=== PATIENT | male | born 1985 | race Caucasian/White ===

== ENCOUNTER 2020-03-09 18:21 | Emergency (ER) | payer MEDICARE, MEDICAID, SELFPAY ==
[2020-03-09 18:23] VITALS: BP 119/84; PULSE 123; RESP 22; TEMP 37.2; O2SAT 98; BMI 27.2
--- NOTE | 2020-03-09 18:26 | [facility].EDGENADL ---
ED Disposition Clinical Impression: Dehydration Disposition: Home, Self-Care Condition on Discharge: Good Instructions: DI for Dehydration -- Adult Referrals: Adan Segovia MD [Primary Care Provider] - 3 days - Critical Care Critical Care Time: No Attestation: On , the high probability of a clinically significant, sudden or life threatening deterioration of the following system(s) required my full and direct attention, intervention and personal management. The time I documented below is in addition to time spent performing reported procedures but includes the following listed in this critical care notation. Medical Decision Making - [place] Inquiry Pt receiving controlled substance: No Vital Signs: 03/09/20 18:23 Temperature 99 F Temperature Source Oral Pulse Rate [Left Radial] 123 H Respiratory Rate 22 Blood Pressure [Right Arm] 119/84 Blood Pressure Mean [Right Arm] 95 Blood Pressure Position [Right Arm] Sitting 02 Sat by Pulse Oximetry 98 - Lab Data Lab results reviewed: Yes: I reviewed the patient's lab results. Lab Results 03/09/20 18:39: WBC 13.4 H, RBC 5.20, Hgb 16.1, Hct 45.6, MCV 87.7, MCH 31.1, MCHC 35.4, RDW 14.5, Plt Count 271, MPV 7.4, Neut % (Auto) 72.3, Lymph % (Auto) 21.6, Canadian % (Auto) 5.1, Eos % (Auto) 0.7, Baso % (Auto) 0.3, Neut # (Auto) 9.7 H, Lymph # (Auto) 2.9, Canadian # (Auto) 0.7, Eos # (Auto) 0.1, Baso # (Auto) 0.0 03/09/20 18:39: Sodium 142, Potassium 3.3 L, Chloride 109 H, Carbon Dioxide 21 L, Anion Gap 15.3 H, BUN 9, Creatinine 1.00, Estimated Creat Clear 127, Estimated GFR 86, Est GFR ( Amer) 103, Glucose 98, Calcium 9.1, Total Bilirubin 0.6, AST 21, ALT 16, Alkaline Phosphatase 63, Total Protein 7.0, Albumin 4.3, Globulin 2.7, Albumin/Globulin Ratio 1.6, Lipase 30 03/09/20 18:39: Plasma/Serum Alcohol < 10 Result diagrams: 03/09/20 18:39 03/09/20 18:39 Orders (Tests/Meds): ED MEDICATIONS Generic Name Dose Route Start Last Admin Trade Name Rose PRN Reason Stop Dose Admin Sodium Chloride 1,000 mls @ 999 mls/hr 03/09/20 18:30 03/09/20 18:32 Sod Chlor 0.9% 1000ml Bag IV 03/09/20 19:30 999 mls/hr .[id number] SHERRI Administration ORDERS Category Date Time Status Drug Screen,Urine Stat Lab 03/09/20 18:25 Ordered Urinalysis and Microscopic Stat Lab 03/09/20 18:25 Ordered Medical Decision Narrative: Patient alert and oriented x4. He has some dehydration, feeling much better after a liter of fluids. He states that he wants to try to leave to go back to [facility]. [facility] is already stated that they will not take him back, but he is certainly welcome to try to go back there. He states that if that does not work his plan is to obtain transport to [place]. No psychosis, confusion, delirium. he is of sound decision-making capacity, discharged from the ER. General Adult HPI - General Chief complaint: Weakness Stated complaint: weakness Time Seen by Provider: 03/09/20 18:21 Mode of Arrival: EMS Source of Information: Patient, EMS Limitations: No Limitations - History of Present Illness HPI narrative: This is a 34-year-old male with a past medical history of unspecified mood disorder who is a resident of [facility] that apparently left the facility today and has been wandering by the roadside for the majority of the day. Patient states he has been gone about 4 hours. He was found by bystanders to be drinking from various bottles on the roadside, so bystanders called police. Police called EMS for evaluation and patient presents here. His only complaint is pain in his legs and feet from walking all day. He is alert and oriented x4. Further discussion with [facility] later reveals that patient arrived 2 weeks ago, signed himself out after 24 hours (patient is competent to make his own medical decisions and has been homeless for years), then was readmitted the next day, and signed himself out again today. - Related Data Allergies Allergy/AdvRea
[2020-03-09 18:48] LABS: Basophils % 0.3 % (0.1-2.0); Eosinophils # 0.1 K/mm3 (0.0-0.4); Eosinophils % 0.7 % (0.1-12.0); Hematocrit 45.6 % (42.0-52.0); Hemoglobin 16.1 g/dL (14.1-18.0); Lymphocytes # 2.9 K/mm3 (0.7-4.5); Lymphocytes % 21.6 % (10-50); Mean Corpuscular HGB Conc 35.4 g/dL (31.8-35.4); Mean Corpuscular Hemoglobin 31.1 pg (27.0-31.2); Mean Corpuscular Volume 87.7 fl (80-94); Mean Platelet Volume 7.4 fl (7.4-10.4); Monocytes # 0.7 K/mm3 (0.1-1.0); Monocytes % 5.1 % (1.7-9.3); Neutrophils # 9.7 K/mm3 (1.8-7.8); Neutrophils % 72.3 % (37.0-80.0); Platelet Count 271 K/mm3 (142-424); Red Cell Distribution Width 14.5 % (11.5-17.5); White Blood Count 13.4 K/mm3 (4.8-10.8)
[2020-03-09 18:51] LABS: Chloride 109 mmol/L (98-107); Sodium 142 mmol/L (136-145)
[2020-03-09 18:52] LABS: Potassium 3.3 mmoL/L (3.5-5.1)
[2020-03-09 18:54] LABS: Alanine Aminotransferase 16 U/L (12-78); Alkaline Phosphatase 63 U/L (38-126); Anion Gap 15.3 mEq/L (5-15); Aspartate Amino Transferase 21 U/L (17-59); Bilirubin,Total 0.6 mg/dl (0.2-1.3); Blood Urea Nitrogen 9 mg/dl (9-20); Carbon Dioxide 21 mmol/L (22.0-30.0); Creatinine Clearance Estimated 127 mL/min (50-200); Estimated Glomerular Filt Rate 86 ml/min (>60); GFR (African American) 103 ML/MIN (>60)
[2020-03-09 18:55] LABS: Albumin Level 4.3 g/dl (3.5-5.0); Albumin/Globulin Ratio 1.6 (1.1-1.8); Calcium 9.1 mg/dl (8.4-10.2); Globulin 2.7 g/dL (1.3-3.2); Glucose 98 mg/dl (74-100); Lipase 30 U/L (23-300)
[2020-03-09 19:18] LABS: Ethyl Alcohol < 10 mg/dl (0-10)
[2020-03-09 19:36] VITALS: BP 122/74; PULSE 98; RESP 16; TEMP 37.1; O2SAT 98
== END 2020-03-09 19:40 | disposition home or self-care (01) ==
PROVIDERS: Emergency Provider Emergency Medicine; PCP Emergency Medicine
DX: E86.0 Dehydration (principal); F39 Unspecified mood [affective] disorder
CPT/HCPCS: 80053; 83690; 85025; 96365; 96374; 99282